=== PATIENT | female | born 1985 | race Caucasian/White ===

== ENCOUNTER 2024-03-05 19:05 | Emergency (ER) | payer OTHER, SELFPAY ==
[2024-03-05 19:09] VITALS: BP 134/88; PULSE 98; RESP 18; TEMP 37.1; O2SAT 98; BMI 28.7
--- NOTE | 2024-03-05 19:21 | DI.RAD.S_ITS ---
PROCEDURE: XR CHEST 1V INDICATIONS: eval for PNA TECHNIQUE: One view of the chest was acquired. COMPARISON: None. FINDINGS: Surgical changes and devices: None. Lungs and pleura: Lungs are clear. No pleural effusions or pneumothorax. Mediastinum: Mediastinal contours appear normal. Heart size is normal. Bones and chest wall: No suspicious bony lesions. Overlying soft tissues appear unremarkable. IMPRESSION: No acute cardiopulmonary abnormality is seen. Approved by: Michelle Finley M.D.,Ph.D. on 03/05/2024 at 20:38
--- NOTE | 2024-03-05 19:27 | ED.GENADULT ---
HPI - General Adult General Chief complaint: Upper Respiratory Symptoms Stated complaint: SOB/cold like symptoms Time Seen by Provider: 03/05/24 19:20 Source: patient Mode of arrival: Ambulatory Limitations: no limitations History of Present Illness HPI narrative: Patient is a 30-year-old female who is here for evaluation of several days of cold-like symptoms, shortness of breath, sinus congestion. No fevers. Not tried anything for the symptoms prior to arrival. Nonproductive cough. Does have a distant history of asthma but nothing recently. Has not tried anything for the symptoms prior to arrival. Related Data Allergies Allergy/AdvReac Type Severity Reaction Status Date / Time Penicillins Allergy Hives Verified 03/05/24 19:09 Review of Systems Constitutional Constitutional: Reports system reviewed and no additional complaints, except as documented ENT Ears, Nose, Mouth, and Throat: Reports system reviewed and no additional complaints, except as documented Respiratory Respiratory: Reports system reviewed and no additional complaints, except as documented Integumentary/Breasts Skin/Breast: Reports system reviewed and no additional complaints, except as documented Patient History Social History Smoking Status: Never smoker Smoking Status: Never smoker alcohol intake frequency: a few times a week Substance Use Type: marijuana Exam Initial Vital Signs Initial Vital Signs: Vital Signs Temperature 98.7 F 03/05/24 19:09 Pulse Rate 98 H 03/05/24 19:09 Respiratory Rate 18 03/05/24 19:09 Blood Pressure 134/88 03/05/24 19:09 Pulse Oximetry 98 03/05/24 19:09 Oxygen Delivery Method Room Air 03/05/24 19:09 Const General: cooperative, comfortable and No ill appearing HENMT Head: normal to inspection and normocephalic Ears: TM's normal bilaterally Mouth: oral mucosae normal and moist mucous membranes Resp Effort & Inspection: normal respiratory effort Auscultation: clear to auscultation bilaterally Skin General: no rashes or lesions noted Neuro General: patient alert and patient awake Course Orders Ordered: ED Orders 03/05/24 19:21 XR chest 1V Stat 03/05/24 19:26 Covid-19 + FLU A/B + RSV - PCR Stat Vital Signs Vital signs: Vital Signs - 8 hr 03/05/24 19:09 03/05/24 21:07 Temperature 98.7 F Pulse Rate 98 H 80 Respiratory Rate 18 18 Blood Pressure 134/88 120/73 Pulse Oximetry 98 99 Oxygen Delivery Method Room Air Room Air Medical Decision Making Lab Data Lab results reviewed: Yes I reviewed the patient's lab results. Labs: Lab Results 03/05/24 Range/Units 19:26 SARS-CoV-2 (PCR) Negative (Negative) Influenza A (RT-PCR) Flu a negative (NEGATIVE) Influenza B (RT-PCR) Flu b negative (NEGATIVE) RSV (PCR) Negative (Negative) Imaging Data Chest x-ray: Radiologist's Impression: PROCEDURE: XR CHEST 1V INDICATIONS: eval for PNA TECHNIQUE: One view of the chest was acquired. COMPARISON: None. FINDINGS: Surgical changes and devices: None. Lungs and pleura: Lungs are clear. No pleural effusions or pneumothorax. Mediastinum: Mediastinal contours appear normal. Heart size is normal. Bones and chest wall: No suspicious bony lesions. Overlying soft tissues appear unremarkable. IMPRESSION: No acute cardiopulmonary abnormality is seen. MDM Narrative Medical decision making narrative: Lungs are clear. Afebrile. Chest x-ray shows no signs of pneumonia. Her exam is unremarkable. Fluid and COVID are negative. There was no indication for antibiotics. We discussed [id number] medications that she can try to help control the symptoms. Discussed return precautions and follow-up instructions. She expressed understanding and agreement. Discharge Plan Departure Patient Disposition: Home Clinical Impression: Upper respiratory infection Instructions: DI for Viral Upper Respiratory Infection -- Adult Activity Restrictions/Additional Instructions: You can take Tylenol/ibuprofen for any fevers or body aches. You can continue with the [id number] decongestants like we discussed. Contact your primary provider for follow-up. Return to the emergency department for new symptoms. Stand Alone Forms: Patient Portal/API
[2024-03-05 20:10] LABS: Influenza A - CEPHEID Flu A NEGATIVE (NEGATIVE); Influenza B - CEPHEID Flu B NEGATIVE (NEGATIVE); Respiratory Syncytial Virus Negative (Negative)
[2024-03-05 20:14] LABS: COVID-19 CEPHEID 4-PLEX PCR Negative (Negative)
[2024-03-05 21:07] VITALS: BP 120/73; PULSE 80; RESP 18; O2SAT 99
== END 2024-03-05 21:10 | disposition home or self-care (01) ==
PROVIDERS: Emergency Provider Emergency Medicine
DX: J06.9 Acute upper respiratory infection, unspecified (principal); Z20.822 Contact with and (suspected) exposure to COVID-19
CPT/HCPCS: 0241U; 71045; 99282; 99283

== ENCOUNTER 2024-05-17 09:22 | Emergency (ER) | payer OTHER, SELFPAY ==
[2024-05-17 09:25] VITALS: BP 134/94; PULSE 96; RESP 16; TEMP 36.2; O2SAT 99
--- NOTE | 2024-05-17 09:51 | ED.SKABFB ---
HPI - Skin/Abscess/Foreign Bdy General Chief complaint: Skin/Abscess/Foreign Body Stated complaint: lump behind neck, back pain Time Seen by Provider: 05/17/24 09:31 Source: patient Mode of arrival: Ambulatory Limitations: no limitations History of Present Illness HPI narrative: Patient is a healthy 38-year-old female presents today with a lump on the back of her neck. She is confident it was not there 3 weeks ago but can not tell exactly when it started forming. It has over the last 24 hours become a little bit more painful. No fever chills or redness. She definitely notices it in the mirror now when she previously has not. Related Data Allergies Allergy/AdvReac Type Severity Reaction Status Date / Time Penicillins Allergy Hives Verified 05/17/24 09:28 Patient History Social History Smoking Status: Never smoker Smoking Status: Never smoker alcohol intake frequency: a few times a week Substance Use Type: marijuana Exam Initial Vital Signs Initial Vital Signs: Vital Signs Temperature 97.1 F L 05/17/24 09:25 Pulse Rate 96 H 05/17/24 09:25 Respiratory Rate 16 05/17/24 09:25 Blood Pressure 134/94 H 05/17/24 09:25 Pulse Oximetry 99 05/17/24 09:25 Oxygen Delivery Method Room Air 05/17/24 09:25 GENERAL: Well-appearing, well-nourished and in no acute distress. CARDIOVASCULAR: peripheral pulses in tact, cap refill <2 sec RESPIRATORY: No respiratory distress, speaks in full sentences without difficulty EXTREMITIES: Normal range of motion, no clubbing or edema. Neurovascularly intact NEUROLOGICAL: Cranial nerves II through XII grossly intact. Normal gait and speech. SKIN: 9 cm area over cervical spine at the nape of the neck. Non mobile non fluctuation no erythema no induration Course Vital Signs Vital signs: Vital Signs - 8 hr 05/17/24 09:25 Temperature 97.1 F L Pulse Rate 96 H Respiratory Rate 16 Blood Pressure 134/94 H Pulse Oximetry 99 Oxygen Delivery Method Room Air MDM - Skin/Abscess/Foreign Bdy MDM Narrative Medical decision making narrative: Patient 38-year-old female who presents today with swelling at the nape of her neck measuring 9 x 9 cm. Bedside ultrasound does not show any obvious abscess or fluid pocket. I suspect more of a lipoma rather than abscess. It is also red and fluctuant. Discussed with patient that she probably needs surgery referral Discharge Plan Departure Patient Disposition: Home Clinical Impression: Lipoma Instructions: Lipoma Activity Restrictions/Additional Instructions: *You have been diagnosed with lipoma *What to do: At this time I do recommend you have evaluation with General surgery for removal. It has not emergent. I would continue to monitor it may take Tylenol Motrin as needed for pain *Continue to take medications as directed *Follow up with your primary care provider in 2-3 days or call [phone] *Return to ER if you should have increasing redness swelling pain fever or any new, worsening or concerning symptoms Referrals: [facility] [Provider Group] Stand Alone Forms: Patient Portal/API
== END 2024-05-17 10:12 | disposition home or self-care (01) ==
PROVIDERS: Emergency Provider Emergency Medicine
DX: D17.0 Benign lipomatous neoplasm of skin and subcutaneous tissue of head, face and neck (principal)
CPT/HCPCS: 99281